=== PATIENT | male | born 1955 | race Caucasian/White ===

== ENCOUNTER 2022-12-14 23:58 | Inpatient (IN) | payer MEDICARE, OTHER ==
[~2022-12-14] VITALS: Ht 170.2 cm; Wt 85.2 kg
[2022-12-15] MEDS ORDERED: HEParin 1000 UNIT/ML (10ML VIAL) FOR BOLUS IV ONE (00:03)
[2022-12-15] MEDS ORDERED: TICAGRELOR 90 MG TABLET (BRILINTA) PO STA (00:03)
[2022-12-15 00:11] LABS: BASOPHILS # (AUTO) 0.1 10^3/uL (0.0-0.1); BASOPHILS % (AUTO) 1 % (0-10); EOSINOPHILS # (AUTO) 0.3 10^3/uL (0.0-0.3); EOSINOPHILS % (AUTO) 3 % (0-10); HEMATOCRIT 45 % (40-54); LYMPHOCYTES # (AUTO) 2.7 10^3/uL (1.0-4.0); LYMPHOCYTES % (AUTO) 27 % (12-44); MEAN CORPUSCULAR HEMOGLOBIN 30 pg (25-34); MEAN CORPUSCULAR HGB CONC 33 g/dL (32-36); MEAN CORPUSCULAR VOLUME 91 fL (80-99); MEAN PLATELET VOLUME 10.7 fL (9.0-12.2); MONOCYTES # (AUTO) 0.9 10^3/uL (0.0-1.0); MONOCYTES % (AUTO) 9 % (0-12); NEUTROPHILS # (AUTO) 6.2 10^3/uL (1.8-7.8); NEUTROPHILS % (AUTO) 61 % (42-75); PLATELET COUNT 252 10^3/uL (130-400); WHITE BLOOD COUNT 10.3 10^3/uL (4.3-11.0)
[2022-12-15] MEDS ORDERED: fentaNYL INJECTION 100 MCG/2 ML VIAL ONE (00:12)
--- NOTE | 2022-12-15 00:12 | ED Chest Pain ---
General Chief Complaint: Chest Pain Stated Complaint: STEMI Source: patient, EMS Exam Limitations: no limitations History of Present Illness Date Seen by Provider: Dec 14, 2022 Time Seen by Provider: 23:56 Initial Comments By EMS with report of shortness of air all day long as [facility] with chest pain that is central without significant radiation and associated with nausea. Ordered to EMS pain 6 out of 10 and also shortness of breath. EMS did give 324 mg of aspirin p.o. and did twelve-lead EKG. Twelve-lead EKG concerning for inferior NC with elevation in leads II, III and aVF and that was transmitted. I did speak with the metal bonding press operator at the scene who described syndrome and we talked about EKG which is concerning for STEMI. STEMI alert activated and patient patient in route via EMS emergent. Patient does have history of hypertension. He chews but does not smoke. Pain persist now. Timing/Duration: 1 hour, constant, getting worse (Shortness of breath getting worse all day) Severity/Quality: moderate, pressure Location: central Radiation: no radiation Prior CP/Workup: no prior chest pain ASA po INSPECTOR CIRCUITRY NEGATIVE: Yes NTG SL INSPECTOR CIRCUITRY NEGATIVE: No Associated Symptoms: No diaphoresis, No fever/chills; nausea/vomiting, shortness of breath; No weakness Allergies and Home Medications Allergies Coded Allergies: Penicillins (Verified Allergy, Unknown, 12/15/22) Patient Home Medication List Home Medication List Reviewed: Yes Review of Systems Review of Systems Constitutional: see HPI; No chills, No fever EENTM: No Symptoms Reported Respiratory: Denies Cough, Denies Shortness of Air Cardiovascular: Chest Pain; Denies Edema Gastrointestinal: Nausea; Denies Vomiting Genitourinary: No Symptoms Reported Musculoskeletal: no symptoms reported Skin: no symptoms reported Psychiatric/Neurological: No Symptoms Reported Past Amsfdwb-Fdchya-Rfygcm Hx Patient Social History Smoking Status: Former Smoker Smokeless Tobacco Frequency: Current Everyday User Past Medical History Surgeries: Yes Abdominal, Testicular Respiratory: No Cardiac: Yes Hypertension Musculoskeletal: No Endocrine: Yes Hypothyroidsim Family Medical History Reviewed Nursing Family Hx No Pertinent Family Hx Physical Exam Vital Signs Capillary Refill : Height, Weight, BMI Height: '" Weight: lbs. oz. kg; BMI Method: General Appearance: No Apparent Distress, Mild Distress HEENT: PERRL/EOMI, Pharynx Normal Neck: Non Tender, Supple Respiratory: Lungs Clear, Normal Breath Sounds Cardiovascular: Regular Rate, Rhythm, No Murmur Gastrointestinal: Non Tender, Soft Extremity: Normal Range of Motion, Non Tender Neurologic/Psychiatric: Alert, Oriented x3 Skin: Normal Color, Warm/Dry Progress/Results/Core Measures Results/Orders Lab Results Laboratory Tests Test 12/15/22 00:04 Range/Units White Blood Count 10.3 4.3-11.0 10^3/uL Red Blood Count 4.95 4.30-5.52 10^6/uL Hemoglobin 15.0 13.3-17.7 g/dL Hematocrit 45 40-54 % Mean Corpuscular Volume 91 80-99 fL Mean Corpuscular Hemoglobin 30 25-34 pg Mean Corpuscular Hemoglobin Concent 33 32-36 g/dL Red Cell Distribution Width 13.7 10.0-14.5 % Platelet Count 252 130-400 10^3/uL Mean Platelet Volume 10.7 9.0-12.2 fL Immature Granulocyte % (Auto) 0 % Neutrophils (%) (Auto) 61 42-75 % Lymphocytes (%) (Auto) 27 12-44 % Monocytes (%) (Auto) 9 0-12 % Eosinophils (%) (Auto) 3 0-10 % Basophils (%) (Auto) 1 0-10 % Neutrophils # (Auto) 6.2 1.8-7.8 10^3/uL Lymphocytes # (Auto) 2.7 1.0-4.0 10^3/uL Monocytes # (Auto) 0.9 0.0-1.0 10^3/uL Eosinophils # (Auto) 0.3 0.0-0.3 10^3/uL Basophils # (Auto) 0.1 0.0-0.1 10^3/uL Immature Granulocyte # (Auto) 0.0 0.0-0.1 10^3/uL Prothrombin Time 12.5 12.2-14.7 SEC INR Comment 0.9 0.8-1.4 Activated Partial Thromboplast Time 34 24-35 SEC Sodium Level 141 135-145 MMOL/L Potassium Level 3.7 3.6-5.0 MMOL/L Chloride Level 103 98-107 MMOL/L Carbon Dioxide Level 22 21-32 MMOL/L Anion Gap 16 H 5-14 MMOL/L Blood Urea Nitrogen 14 7-18 MG/DL Creatinine 1.37 H 0.60-1.30 MG/DL Estimat Glomerular Filtration Rate 57 BUN/Creatinine Ratio 10 Glucose Level 264 H 70-105 MG/DL Calcium Level 9.7 8.5-10.1 MG/DL Corrected Calcium 9.4 8.5-10.1 MG/DL Magnesium Level 2.2 1.6-2.4 MG/DL Total Bilirubin 0.5 0.1-1.0 MG/DL Aspartate Amino Transf (AST/SGOT) 15 5-34 U/L Alanine Aminotransferase (ALT/SGPT) 21 0-55 U/L Alkaline Phosphatase 82 40-136 U/L Myoglobin 24.8 10.0-92.0 NG/ML Troponin I < 0.028 <0.028 NG/ML Total Protein 7.3 6.4-8.2 GM/DL Albumin 4.4 3.2-4.5 GM/DL Lipase 49 8-78 U/L My Orders Orders - GEENA SHERWOOD MD Chest 1 View, Ap/Pa Only (12/15/22 ) Cbc And Automated Diff (12/15/22 00:03) Magnesium (12/15/22 00:03) Ekg Tracing (12/15/22 00:03) Comprehensive Metabolic Panel (12/15/22 00:03) Myoglobin Serum (12/15/22 00:03) Protime With Inr (12/15/22 00:03) Partial Thromboplastin Time (12/15/22 00:03) O2 (12/15/22 00:03) Monitor-Rhythm Ecg Trace Only (12/15/22 00:03) Lipid Panel (12/16/22 06:00) Ed Iv/Invasive Line Start (12/15/22 00:03) Lipase (12/15/22 00:03) Troponin I Refugio (12/15/22 00:03) Ticagrelor Tablet (Brilinta Tablet) (12/15/22 00:03) Heparin (Bolus Per Protocol) (Heparin (B (12/15/22 00:03) Heparin Drip 07476 Unit/500ml (Heparin (12/15/22 00:15) Medications Given in ED Current Medications Medications Dose Ordered Sig/Danyel Route Start Time Stop Time Status Last Admin Dose Admin Heparin Sodium (Porcine) HEPARIN BOLUS ACS PROTOC... 0003 ONCE IV 12/15/22 00:03 12/15/22 00:06 DC 12/15/22 00:17 5,000 UNIT Progress Progress Note : Progress Note STEMI activation from the field. Seen and evaluated on arrival by EMS. I had already talked with Dr Vigil at 2351 and [facility] team activation at that time. Chest pain protocol ordered including EKG, chest x-ray, labs including CBC, CMP, myoglobin, coags, troponin and lipase. Dr Vigil request aspirin 324 mg p.o. if not done by EMS. Also request heparin protocol with bolus and drip. Also initiate Brilinta 180 mg p.o. Monitor patient. Differential diagnosis includes acute myocardial infarction EKG confirms acute NC. Orders as above. [facility] team pending. Patient and family informed. 0015: Chest x-ray reviewed by me and shows no obvious infiltrate on my interpretation. CBC grossly normal with chemistries pending. 0030: Patient has gone to [facility]. Chemistries reviewed and slightly elevated serum creatinine but otherwise grossly normal. Troponin and myoglobin are negative. Coags are normal. Initial ECG Impression Date: Dec 15, 2022 Initial ECG Impression Time: 00:05 Initial ECG Rate: 68 Initial ECG Rhythm: Normal Sinus Initial ECG Impression: Acute NC Comment Sinus rhythm with sinus arrhythmia and ST elevation noted in leads II, III and aVF with reciprocal changes in V1 and V2 indicating inferior NC. Normal axis noted. Interpreted by me and discussed with blanchard grinder operator Diagnostic Imaging Diagonstic Imaging: Xray Plain Films/CT/US/NM/MRI: chest Comments No obvious acute infiltrate on my interpretation Reviewed: Reviewed by Me Departure Communication (Admissions) Time/Spoke to Admitting Phy: 00:05 Impression Primary Impression: Acute ST elevation myocardial infarction (STEMI) of inferior wall Disposition: ADMITTED INPATIENT Condition: Stable Admissions Decision to Admit Reason: Admit from ER (General) Decision to Admit/Date: Dec 15, 2022 Time/Decision to Admit Time: 00:05 GEENA SHERWOOD MD Dec 15, 2022 00:12
[2022-12-15] MEDS ORDERED: MIDAZOLAM INJ 5 MG/5 ML VIAL ONE (00:13)
[2022-12-15] MEDS ORDERED: NITRO DRIP 25000 MCG/D5W 250 ML IV ONE (00:13)
[2022-12-15] MEDS ORDERED: NS IV 1000 ML 1,000 ML ONE (00:13)
[2022-12-15] MEDS ORDERED: HEParin (CATH LAB) 2,000 ML IV ONE (00:13)
[2022-12-15] MEDS ORDERED: HEParin 1000 UNIT/ML (10ML VIAL) FOR BOLUS ONE (00:13)
[2022-12-15] MEDS ORDERED: LIDOCAINE 1% INJ 20 ML VIAL ONE (00:13)
[2022-12-15] MEDS ORDERED: EPTIFIBATIDE BOLUS 20 ML IV ONE (00:14)
[2022-12-15] MEDS ORDERED: HEParin DRIP 25000 UNIT/500ML 500 ML IV ONE (00:15)
[2022-12-15] MEDS ORDERED: morphine INJ 4 MG/ML 1 ML (VIAL/SYRINGE) ONE (00:22)
[2022-12-15 00:33] LABS: ALBUMIN 4.4 GM/DL (3.2-4.5)
[2022-12-15 00:34] LABS: CHLORIDE 103 MMOL/L (98-107); POTASSIUM 3.7 MMOL/L (3.6-5.0); SODIUM 141 MMOL/L (135-145)
[2022-12-15 00:35] LABS: CALCIUM 9.7 MG/DL (8.5-10.1); INR 0.9 (0.8-1.4); PROTHROMBIN TIME PATIENT 12.5 SEC (12.2-14.7)
[2022-12-15 00:36] LABS: GLUCOSE 264 MG/DL (70-105); TOTAL PROTEIN 7.3 GM/DL (6.4-8.2)
[2022-12-15 00:37] LABS: CARBON DIOXIDE 22 MMOL/L (21-32)
[2022-12-15 00:38] LABS: BILIRUBIN,TOTAL 0.5 MG/DL (0.1-1.0)
[2022-12-15 00:39] LABS: ALKALINE PHOSPHATASE 82 U/L (40-136)
[2022-12-15 00:40] LABS: CREATININE SERUM 1.37 MG/DL (0.60-1.30); GFR ESTIMATED 57
[2022-12-15 00:41] LABS: BUN/CREATININE RATIO 10
[2022-12-15 00:42] LABS: ALANINE AMINOTRANSFERASE 21 U/L (0-55); MAGNESIUM 2.2 MG/DL (1.6-2.4)
[2022-12-15 00:43] LABS: LIPASE 49 U/L (8-78)
[2022-12-15] MEDS ORDERED: EPTIFIBATIDE DRIP 100 ML IV ONE (00:47)
[2022-12-15] MEDS ORDERED: niCARdipine IV PYXIS DRIP KIT = 50 MG X 2 VIALS ONE (00:52)
[2022-12-15] MEDS ORDERED: NS (IVPB) 250 ML 250 ML ONE (00:58)
--- NOTE | 2022-12-15 02:01 | Cardiac Cath Report ---
CARDIAC CATHETERIZATION DATE OF PROCEDURE: 12-15-22 INDICATION: Ac Inf Wall STEMI HISTORY: The patient is a 66 year old male with acute inf wall STEMI PROCEDURES PERFORMED: 1. Cor angio; 2. PCI to RCA; 3. LHC and LV angio PROCEDURE DESCRIPTION: After informed consent and in the fasting state, left heart catheterization was performed through the R femoral artery utilizing a 6 [place]ian system by percutaneous approach. JR4 SH guide for R cor angio and intervention, JL4 diagnostic for L cor angio, pigtail for LHC and LV angio. HEMODYNAMICS: LVEDP 8 mmHg (post cor intervention); no significant pressure gradient on pullback across the aortic valve CORONARY ANGIOGRAPHY: Left main coronary artery: Ok Left anterior descending coronary artery: 40% mid vessel with calcification Left circumflex coronary artery: Small, nondominant, w/o significant stenoses Right coronary artery: Dominant, 90% prox and 100 distal (thrombus) LV Angio Done post PCI. REGAN projection only. LVEF 60%. No distinct regional wall motion abnormality PERCUTANEOUS CORONARY INTERVENTION TO RCA Guide: 6F JR4 SH Wire: Choice floppy (tip in the PDA) and Choice PT Graphix (tip in the distal posterolateral) Balloon: 2.5 x 20 Aspiration catheter for aspiration thrombectomy of distal RCA Stents: Skypoint 3.5 x 15 for prox RCA; Riaz point 2.5 x 23 for distal RCA Pre-PCI 1. 90% prox RCA with TONY 2 antegrade flow 2. 100% distal RCA (due to distal thrombus) with TONY 0 antegrade flow Post-PCI 1. 0% prox RCA with TONY 3 antegrade flow following deployment of Skypoint 3.5 x 15 mm stent 2. 0% distal RCA with TONY 3 antegrade flow following aspiration thrombectomy and deployment of Skypoint 2.5 x 23 mm stent [id number] Time: 45 minutes IMPRESSION: 1. Dominant RCA with 90% prox stenosis reduced to 0% residual following Skypoint 3.5 x 15 stent and 100% distal RCA (due to thrombus) reduced to 0% following aspiration thrombectomy and Skypoint 2.5 x 23 stent. LAD has 40% mid- vessel stenosis. LCx is nondominant and without significant disease 2. LVEDP 8 mmHg 3. LVEF 60% KELL BROWN MD FACP FAC CCDS Dec 15, 2022 02:01
--- NOTE | 2022-12-15 02:02 | Cardiac Procedure Note-CS/ASA ---
Pre-Procedure Note Pre-Op Procedure Note Date of Available H&P: Dec 15, 2022 Date H&P Reviewed: Dec 15, 2022 Time H&P Reviewed: 00:30 History & Physical: H&P Reviewed Moderate Sedation PreProcedure ASA Score 4 Airway Lungs Heart ASA score ASA 1: a normal healthy patient ASA 2: a patient with a mild systemic disease (mid diabetes, controlled hypertension, obesity ASA 3: a patient with a severe systemic disease that limits activity (angina, COPD, prior Myocardial infarction) ASA 4: a patient with an incapacitating disease that is a constant threat to life (CHF, renal failure) ASA 5: a moribund patient not expected to survive 24 hrs. (ruptured aneurysm) ASA 6: a declared brain- patient whose organs are being harvested. For emergent operations, add the letter E after the classification Mallampati Classification Grade 2 Sedation Plan Analgesia, Amnesia, Plan communicated to team members The patient is an appropriate candidate to undergo the planned procedure, sedation, and anesthesia. The patient immediately re-assessed prior to indication. KELL BROWN MD FACP FAC CCDS Dec 15, 2022 02:02
[2022-12-15] MEDS ORDERED: ACETAMINOPHEN 325 MG TABLET PO PRN (02:15)
[2022-12-15] MEDS ORDERED: TEMAZEPAM 7.5 MG CAP (RESTORIL) PO PRN (02:15)
[2022-12-15] MEDS ORDERED: PATIENT MAY USE OWN MEDS, ALL PO SCH (02:15)
--- NOTE | 2022-12-15 02:20 | Consultation-Cardiology ---
HPI-Cardiology Cardiology Consultation: Date of Consultation 12/15/22 Time Seen by a Provider: 00:30 Date of Admission Attending Physician No,Local Physician Admitting Physician Admitting Physician: Attending Physician: René Vigil MD [facility] Consulting Physician RENÉ VIGIL MD, FACP, FAC, [facility], CCDS HPI: Chief Complaint: Chest discomfort 66 yo man traveling from [place] who developed sudden chest discomfort in the midsternal area, mod to severe, associated with nausea, w/o radiation, never experienced before. No shortness of breath. No palp or syncope. No vomiting or diarrhea. ECG by EMT showed inf ST elevation. Brought to the label cutter upon arrival to the ER. Informed consent obtained for card cath and ad hoc PCI. RCA intervened on. Review of Systems-Cardiology Review of Systems Constitutional: No lightheadedness, No malaise, No weight loss, No weight gain Eyes: No vision change Ears/Nose/Throat: No ear discharge, No nasal drainage, No recent hearing loss Respiratory: As described under HPI Cardiovascular: As described under HPI Gastrointestinal: As described under HPI Genitourinary: No dysuria, No hematuria Musculoskeletal: No back pain, No joint pain Skin: No rash, No ulcerations Psychiatric/Neurological: No seizure, No focal weakness, No syncope Hematologic: No bleeding abnormalities LVT-Tovvuu-Ieedkc Hx Patient Social History Smoking Status: Former Smoker Past Medical History PMH As described under Assessment. Family Medical History Family Medical History: Mother and brother have a h/o [place] Allergies and Home Medications Allergies Coded Allergies: Penicillins (Verified Allergy, Unknown, 12/15/22) Patient Home Medication List Home Medication List Reviewed: Yes Physical Exam-Cardiology Physical Exam Vital Signs/I&O Capillary Refill : Constitutional: AAO x 3, well-developed, well-nourished HEENT: EOMI, hearing is well preserved; No xanthelasmas are seen Neck: carotid pulses are 2 + bilaterally, with good upstrokes Respiratory: No accessory muscle use; chest expansion is symmetric, chest is bilaterally symmetric, other (good, bilat air entry) Cardiovascular: regular rate-rhythm, S1 and S2, systolic murmur (soft LEONARDO at card base) Gastrointestinal: No tender; soft; No guarding, No rebound; audible bowel sounds Extremities: No clubbing, No cyanosis, No significant edema Neurologic/Psychiatric: oriented x 3, other (moves all limbs equally) Skin: normal color, warm/dry; No cyanosis, No cool, No diaphoresis, No rash, No ulcerations Data Review Labs Laboratory Tests 12/15/22 00:04: White Blood Count 10.3, Red Blood Count 4.95, Hemoglobin 15.0, Hematocrit 45, Mean Corpuscular Volume 91, Mean Corpuscular Hemoglobin 30, Mean Corpuscular Hemoglobin Concent 33, Red Cell Distribution Width 13.7, Platelet Count 252, Mean Platelet Volume 10.7, Immature Granulocyte % (Auto) 0, Neutrophils (%) (Auto) 61, Lymphocytes (%) (Auto) 27, Monocytes (%) (Auto) 9, Eosinophils (%) (Auto) 3, Basophils (%) (Auto) 1, Neutrophils # (Auto) 6.2, Lymphocytes # (Auto) 2.7, Monocytes # (Auto) 0.9, Eosinophils # (Auto) 0.3, Basophils # (Auto) 0.1, Immature Granulocyte # (Auto) 0.0, Prothrombin Time 12.5, INR Comment 0.9, Activ ated Partial Thromboplast Time 34, Sodium Level 141, Potassium Level 3.7, Chloride Level 103, Carbon Dioxide Level 22, Anion Gap 16H, Blood Urea Nitrogen 14, Creatinine 1.37H, Estimat Glomerular Filtration Rate 57, BUN/Creatinine Ratio 10, Glucose Level 264H, Calcium Level 9.7, Corrected Calcium 9.4, Magnesium Level 2.2, Total Bilirubin 0.5, Aspartate Amino Transf (AST/SGOT) 15, Alanine Aminotransferase (ALT/SGPT) 21, Alkaline Phosphatase 82, Myoglobin 24.8, Troponin I < 0.028, Total Protein 7.3, Albumin 4.4, Lipase 49 Laboratory Tests 12/15/22 00:04 A/P-Cardiology Assessment/Admission Diagnosis Ac inf wall STEMI - card cath on 12-15-22: 1. Dominant RCA with 90% prox stenosis reduced to 0% residual following Skypoint 3.5 x 15 stent and 100% distal RCA (due to thrombus) reduced to 0% following aspiration thrombectomy and Skypoint 2.5 x 23 stent. LAD has 40% mid-vessel stenosis. LCx is nondominant and without significant disease. 2. LVEDP 8 mmHg. 3. LVEF 60% H/o hyperlipidemia Elevated blood sugar suggestive of DM II Mild renal insufficiency of unknown chronicity Quit smoking in or around 2013 Discussion and Recomendations * DAPT * BB * Statin * Echo * Advised to continue to refrain from smoking * iv fluids * Monitor labs * Hospitalist consult to manage hyperglycemia and renal insuff * I discussed his CV issues and interventions undertaken in detail with the patient and his family (that he allowed to be present) Clinical Quality Measures AMI/AHF: ASA po Prior to arrival: Yes RENÉ VIGIL MD FACP FAC CCDS Dec 15, 2022 02:20
[2022-12-15] MEDS: NS IV 1000 ML 1,000 ML IV SCH ×3 (03:53→20:36)
[2022-12-15] MEDS ORDERED: ONDANSETRON INJECTION 4 MG/2 ML (SDV) ONE (04:58)
[2022-12-15] MEDS ORDERED: morphine INJ 4 MG/ML 1 ML (VIAL/SYRINGE) IVP PRN (05:00)
[2022-12-15] MEDS ORDERED: ONDANSETRON INJECTION 4 MG/2 ML (SDV) IVP PRN (05:00)
[2022-12-15] MEDS ORDERED: inSUlin ASPART 1 UNIT/0.01 ML (PER UNIT) SC SCH (07:00)
--- NOTE | 2022-12-15 07:49 | Diagnostic Imaging Report ---
EXAMINATION: Chest 1 view HISTORY: STEMI COMPARISON: None available. FINDINGS: Heart size and pulmonary vasculature are normal. The lungs are clear without consolidation, pleural effusion, or pneumothorax. Degenerative changes of the thoracic spine. Osseous structures are otherwise intact. IMPRESSION: 1. No acute radiographic abnormality in the chest. Dictated by: Dictated on workstation # [id number]
[2022-12-15] MEDS: ASPIRIN 81 MG CHEWABLE TABLET PO SCH (09:31)
[2022-12-15] MEDS: TICAGRELOR 90 MG TABLET (BRILINTA) PO SCH ×2 (09:32→20:35)
[2022-12-15] MEDS: inSUlin ASPART 1 UNIT/0.01 ML (PER UNIT) SC SCH ×3 (10:59→20:34)
--- NOTE | 2022-12-15 10:59 | Consultation - Hospitalist ---
JAMIE HICKEY MD, RESIDENT 12/15/22 1059: HPI History of Present Illness: HPI/Chief Complaint Hospitalist service was consulted for management of patient's hyperglycemia and renal insufficiency. He is status post cardiac cath secondary to STEMI. Of note, patient had stent placed due to 90% proximal RCA stenosis and had thrombectomy and stent placement of thrombus leading to 100% distal RCA stenosis. Patient is doing well today. He is continuing to note some sided chest pain but states this is slowly improving compared to prior. He was noted to have hyperglycemia but states that he has always been in the prediabetic range and has never been on any medications for diabetes. Patient does note that he had a chest cold prior to presenting to the ED with cough productive of greenish sputum. He states this is also improving. Date Seen 12/15/22 Attending Physician Declo/[facility] PCP Admitting Physician: René Vigil MD [facility] Ccds Attending Physician: René Vigil MD [facility] Ccds Referring Physician Dr. Vigil Date of Admission Dec 15, 2022 at 02:03 Home Medications & Allergies Home Medications Reviewed patient Home Medication Reconciliation performed by pharmacy medication reconciliations lawn care technician and/or nursing. Patients Allergies have been reviewed. Allergies Allergies Coded Allergies Penicillins (Verified Allergy, Unknown, 12/15/22) Past Llcfnlx-Batmlz-Ogxfeu Hx Patient Social History Tobacco Use?: No Smoking Status: Former Smoker Smokeless type used: Chew Smokeless Tobacco Frequency: Current Everyday User Use of E-Cig and/or Vaping dev: No Substance use?: No Alcohol Use?: No Pt feels they are or have been: No Current Status Advance Directives: Unable to obtain Advance Directive Location: Unable to obtain copy Communicates: Verbally Primary Language: Comoran Preferred Spoken Language: Comoran Is interpretation needed?: No Sensory deficits: Vision impairment Additional sensory deficits: glassess at bedside Implanted or Applied Medical D: None Past Medical History Surgeries: Abdominal, Testicular Hypertension Hypothyroidsim Family Medical History Reviewed Nursing Family Hx No Pertinent Family Hx Review of Systems Constitutional: No chills, No fever EENTM: No blurred vision Respiratory: cough; No phlegm, No short of breath Cardiovascular: chest pain; No edema Gastrointestinal: No abdominal pain, No constipation, No diarrhea, No nausea, No vomiting Genitourinary: No dysuria Musculoskeletal: No back pain Skin: No dryness Physical Exam Physical Exam Vital Signs Vital Signs - First Documented 12/14/22 12/15/22 23:58 00:04 Temp 36.4 Pulse 82 Resp 16 B/P (MAP) 165/92 (116) Pulse Ox 98 O2 Delivery Room Air O2 Flow Rate 2.00 Capillary Refill : Less Than 3 Seconds Height, Weight, BMI Height: '" Weight: lbs. oz. kg; 29.34 BMI Method: General Appearance: No Apparent Distress, Mild Distress HEENT: PERRL/EOMI, Pharynx Normal Neck: Non Tender, Supple Respiratory: Normal Breath Sounds, Crackles (Rectal was noted in the left lower lobe.) Cardiovascular: Regular Rate, Rhythm, No Murmur Gastrointestinal: Non Tender, Soft Extremity: Normal Range of Motion, Non Tender Neurologic/Psychiatric: Alert, Oriented x3 Skin: Normal Color, Warm/Dry Results Results/Procedures Labs Laboratory Tests 12/15/22 00:04 Patient resulted labs reviewed. Diagnosis/Problems Diagnosis/Problems (1) Acute ST elevation myocardial infarction (STEMI) of inferior wall Status: Acute Assessment & Plan: Managed per cardiology. Agree with DAPT, beta-doc, statin at this time. Agree with echocardiogram to further evaluate heart function. (2) Renal insufficiency Status: Acute Assessment & Plan: Not concerning at this time. Continue monitoring with daily CMP. Continue maintenance fluids. (3) Hypothyroidism Status: Chronic Assessment & Plan: Patient has a history of hypothyroidism is on levothyroxine. Consider restarting patient's levothyroxine if appropriate in the setting of recent STEMI (4) Hyperglycemia Status: Acute Assessment & Plan: Patient noted to have glucose of 264 with CMP. Ordered A1c to further evaluate Continue sliding scale insulin for further management at this time. We will continue to monitor glucose checks. (5) Lung crackles Status: Acute Assessment & Plan: Left lower lobe crackles on lung exam today. Chest x-ray obtained on admission is clear. Ordered incentive spirometry. Clinical Quality Measures AMI/AHF: ASA po Prior to arrival: Yes SAADIA ALONSO DO 12/15/22 1448: HPI History of Present Illness: HPI/Chief Complaint CC: Hyperglycemia HPI: This is a 66yoWM who s/p STEMI with intervention. He has been borderline DM for "years" Source: patient Exam Limitations: no limitations Past Ukjazpv-Ryuyww-Rqthbi Hx Patient Social History Marrital Status: single Employed/Student: retired Smoking Status: Current Everyday Smoker Past Medical History Diabetes, Non-Insulin dep Review of Systems Constitutional: see HPI Physical Exam Physical Exam General Appearance: No Apparent Distress, WD/WN, Chronically ill Respiratory: Lungs Clear, Normal Breath Sounds Assessment/Plan Assessment and Plan Assess & Plan/Chief Complaint NSTEMI DM HTN HLP Plan: SSI Monitor closely JAMIE HICKEY MD, RESIDENT Dec 15, 2022 10:59 SAADIA ALONSO DO Dec 15, 2022 14:48
[2022-12-15] MEDS ORDERED: LEVO137C4 PO (11:08)
[2022-12-15] MEDS ORDERED: AMLO-250 PO (11:08)
[2022-12-15] MEDS ORDERED: MULT-436 PO (11:08)
[2022-12-15] MEDS ORDERED: OMEG10005 PO (11:08)
[2022-12-15] MEDS ORDERED: CALC600T91 PO (11:08)
[2022-12-15] MEDS ORDERED: ASPI-999 PO (11:08)
[2022-12-15] MEDS ORDERED: LYSI500T37 PO (11:08)
[2022-12-15] MEDS ORDERED: VITA100T6 PO (11:08)
[2022-12-15] MEDS ORDERED: ATEN50TA PO (11:08)
[2022-12-16 05:45] LABS: BASOPHILS # (AUTO) 0.1 10^3/uL (0.0-0.1); BASOPHILS % (AUTO) 1 % (0-10); EOSINOPHILS # (AUTO) 0.2 10^3/uL (0.0-0.3); EOSINOPHILS % (AUTO) 2 % (0-10); HEMATOCRIT 41 % (40-54); HEMOGLOBIN 13.8 g/dL (13.3-17.7); LYMPHOCYTES # (AUTO) 1.5 10^3/uL (1.0-4.0); LYMPHOCYTES % (AUTO) 16 % (12-44); MEAN CORPUSCULAR HEMOGLOBIN 30 pg (25-34); MEAN CORPUSCULAR HGB CONC 34 g/dL (32-36); MEAN CORPUSCULAR VOLUME 89 fL (80-99); MEAN PLATELET VOLUME 10.6 fL (9.0-12.2); MONOCYTES # (AUTO) 1.2 10^3/uL (0.0-1.0); MONOCYTES % (AUTO) 13 % (0-12); NEUTROPHILS # (AUTO) 6.5 10^3/uL (1.8-7.8); NEUTROPHILS % (AUTO) 68 % (42-75); PLATELET COUNT 231 10^3/uL (130-400); WHITE BLOOD COUNT 9.6 10^3/uL (4.3-11.0)
[2022-12-16 05:59] LABS: ALBUMIN 3.6 GM/DL (3.2-4.5)
[2022-12-16 06:00] LABS: CALCIUM 8.7 MG/DL (8.5-10.1)
[2022-12-16 06:05] LABS: CREATININE SERUM 1.05 MG/DL (0.60-1.30)
[2022-12-16] MEDS: inSUlin ASPART 1 UNIT/0.01 ML (PER UNIT) SC SCH ×4 (06:05→21:52)
[2022-12-16 06:09] LABS: MAGNESIUM 1.8 MG/DL (1.6-2.4)
[2022-12-16] MEDS: TICAGRELOR 90 MG TABLET (BRILINTA) PO SCH ×2 (10:08→21:51)
[2022-12-16] MEDS: ASPIRIN 81 MG CHEWABLE TABLET PO SCH (10:08)
--- NOTE | 2022-12-16 11:23 | Progress Note - Cardiology ---
Cardiology SOAP Progress Note Subjective: Sitting up in bed States he feels well He has been up in the room No c/o CP, palpitations, SOB Objective: I&O/Vital Signs 12/16/22 12/16/22 12/16/22 12/16/22 19:52 20:00 21:50 23:40 Temp 37.1 Pulse 100 106 82 Resp 22 35 25 B/P (MAP) 93/51 (65) 111/77 (83) 107/66 (74) Pulse Ox 96 97 O2 Delivery Room Air Room Air Room Air Room Air 12/17/22 12/17/22 12/17/22 12/17/22 00:03 01:00 03:23 03:46 Temp 36.3 Pulse 92 94 Resp 19 B/P (MAP) 101/68 (79) Pulse Ox 93 O2 Delivery Room Air Room Air Room Air 12/17/22 07:44 Temp 36.0 Pulse 97 Resp 20 B/P (MAP) 98/65 (76) Pulse Ox 97 O2 Delivery Room Air 12/16/22 23:59 Intake Total 2500 ml Output Total 2250 ml Balance 250 ml Side: right Groin site without hematoma: Yes Condition: DP/PT pulses palpable Bruising: moderated bruising Constitutional: AAO x 3, well-developed, well-nourished Respiratory: No accessory muscle use; chest expansion is symmetric, chest is bilaterally symmetric, other (good, bilat air entry) Cardiovascular: regular rate-rhythm, S1 and S2, systolic murmur (soft LEONARDO at card base) Gastrointestional: No tender; soft; No guarding, No rebound; audible bowel sounds Extremities: No clubbing, No cyanosis, No significant edema Neurologic/Psychiatric: oriented x 3, other (moves all limbs equally) Skin: normal color, warm/dry; No cyanosis, No cool, No diaphoresis, No rash, No ulcerations Results/Procedures: Labs Laboratory Tests 12/16/22 10:42: Glucometer 143H 12/16/22 15:48: Glucometer 146H 12/16/22 20:51: Glucometer 185H 12/17/22 04:57: Sodium Level 138, Potassium Level 4.0, Chloride Level 108H, Carbon Dioxide Level 20L, Anion Gap 10, Blood Urea Nitrogen 14, Creatinine 1.09, Estimat Glomerular Filtration Rate 74, BUN/Creatinine Ratio 13, Glucose Level 112H, Calcium Level 8.7, Corrected Calcium 8.9, Total Bilirubin 1.0, Aspartate Amino Transf (AST/SGOT) 53H, Alanine Aminotransferase (ALT/SGPT) 29, Alkaline Phosphatase 55, Total Protein 6.2L, Albumin 3.7 A/P: Assessment: Ac inf wall STEMI - card cath on 12-15-22: 1. Dominant RCA with 90% prox stenosis reduced to 0% residual following Skypoint 3.5 x 15 stent and 100% distal RCA (due to thrombus) reduced to 0% following aspiration thrombectomy and Skypoint 2.5 x 23 stent. LAD has 40% mid-vessel stenosis. LCx is nondominant and without significant disease. 2. LVEDP 8 mmHg. 3. LVEF 60% H/o hyperlipidemia Elevated blood sugar suggestive of DM II Mild renal insufficiency of unknown chronicity Quit smoking in or around 2013 Plan: * DAPT * BB * Statin * Echo * Advised to continue to refrain from smoking * D/C IVF * Monitor labs * Hospitalist consult to manage hyperglycemia and renal insuff * Discharge planning Clinical Quality Measures AMI/AHF: ASA po Prior to arrival: Yes EUGENIA ALCANTAR Dec 16, 2022 11:23
[2022-12-16] MEDS ORDERED: ATOR80TA76 PO (11:37)
[2022-12-16] MEDS ORDERED: MTP25TSR PO (11:37)
[2022-12-16] MEDS ORDERED: ASPI81TA64 PO (11:37)
[2022-12-16] MEDS ORDERED: TICA90TA PO (11:37)
--- NOTE | 2022-12-16 11:48 | Progress Note ---
Subjective Subjective/Events-last exam Pt came to hospital due to shortness of breath and concern for heart attack. He was found to have ST elevation OR and he had cath and RCA stenting and is feeling well now. Objective Exam Last Set of Vital Signs Vital Signs Date Time Temp Pulse Resp B/P (MAP) Pulse Ox O2 Delivery O2 Flow Rate FiO2 12/16/22 09:39 36.5 82 18 125/65 (85) 97 Room Air 2.00 2.00 Capillary Refill : Less Than 3 Seconds I&O Intake and Output 12/16/22 00:00 Intake Total 1120 ml Output Total 3550 ml Balance -2430 ml Intake Oral 1120 ml Output Urine Total 3550 ml Daily Weight Change No General: Alert, No Acute Distress Heart: Regular Rate, No Murmurs Abdomen: Normal Bowel Sounds, Soft, No Tenderness Neuro: Normal Speech Psych/Mental Status: Mood NL Results/Procedures Lab Laboratory Tests 12/15/22 17:49: Glucometer 96 12/15/22 20:34: Glucometer 152H 12/16/22 05:32: White Blood Count 9.6, Red Blood Count 4.56, Hemoglobin 13.8, Hematocrit 41, Mean Corpuscular Volume 89, Mean Corpuscular Hemoglobin 30, Mean Corpuscular Hemoglobin Concent 34, Red Cell Distribution Width 13.7, Platelet Count 231, Mean Platelet Volume 10.6, Immature Granulocyte % (Auto) 0, Neutrophils (%) ( Auto) 68, Lymphocytes (%) (Auto) 16, Monocytes (%) (Auto) 13H, Eosinophils (%) (Auto) 2, Basophils (%) (Auto) 1, Neutrophils # (Auto) 6.5, Lymphocytes # (Auto) 1.5, Monocytes # (Auto) 1.2H, Eosinophils # (Auto) 0.2, Basophils # (Auto) 0.1, Immature Granulocyte # (Auto) 0.0, Sodium Level 138, Potassium Level 4.0, Chloride Level 106, Carbon Dioxide Level 22, Anion Gap 10, Blood Urea Nitrogen 11, Creatinine 1.05, Estimat Glomerular Filtration Rate 78, BUN/Creatinine Ratio 10, Glucose Level 130H, Calcium Level 8.7, Corrected Calcium 9.0, Magnesium Level 1.8, Total Bilirubin 1.0, Aspartate Amino Transf (AST/SGOT) 105H, Alanine Aminotransferase (ALT/SGPT) 33, Alkaline Phosphatase 56, Total Protein 6.0L, Albumin 3.6, Triglycerides Level 161H, Cholesterol Level 187, LDL Cholesterol Direct 144H, VLDL Cholesterol 32, HDL Cholesterol 40, Thyroid Stimulating Hormone (TSH) 0.53 12/16/22 10:42: Glucometer 143H Assessment/Plan Assessment/Plan (1) Hyperglycemia Status: Acute Assessment & Plan: A1c pending, sliding scale insulin as needed. Blood sugar 96-161, has not qualified for insulin. (2) Renal insufficiency Status: Acute Assessment & Plan: Creatinine down to 1.05 today. Continue to monitor. (3) Acute ST elevation myocardial infarction (STEMI) of inferior wall Status: Acute Assessment & Plan: s/p RCA stenting and thombectomy. Appreciate Cardiology recommendations. On metoprolol, ticagrelor and asprin and atorvastatin. Clinical Quality Measures AMI/AHF: ASA po Prior to arrival: Yes PREMA VEGA MD Dec 16, 2022 11:48
--- NOTE | 2022-12-16 13:21 | Progress Note - Cardiology ---
Cardiology SOAP Progress Note Subjective: No cp or palp or syncope or shortness of breath or groin or leg discomfort No n/v/d No focal weakness Has been ambulating well and w/o difficulty Objective: I&O/Vital Signs 12/16/22 12/16/22 12/16/22 12/16/22 04:37 04:39 06:02 07:17 Temp 36.5 Pulse 98 82 Resp 18 B/P (MAP) 125/65 (85) Pulse Ox 97 O2 Delivery Room Air Nasal Cannula O2 Flow Rate 2.00 12/16/22 12/16/22 12/16/22 12/16/22 08:18 09:39 12:25 12:26 Temp 36.5 36.4 Pulse 82 90 87 Resp 18 16 B/P (MAP) 125/65 (85) 98/65 (76) Pulse Ox 97 97 O2 Delivery Room Air Room Air Room Air O2 Flow Rate 2.00 2.00 12/16/22 00:00 Intake Total 750 ml Output Total 1950 ml Balance -1200 ml Side: right Groin site without hematoma: Yes Condition: DP/PT pulses palpable Bruising: moderated bruising Constitutional: AAO x 3, well-developed, well-nourished Respiratory: No accessory muscle use; chest expansion is symmetric, chest is bilaterally symmetric, other (good, bilat air entry) Cardiovascular: regular rate-rhythm, S1 and S2, systolic murmur (soft LEONARDO at card base) Gastrointestional: No tender; soft; No guarding, No rebound; audible bowel sounds Extremities: No clubbing, No cyanosis, No significant edema Neurologic/Psychiatric: oriented x 3, other (moves all limbs equally) Skin: normal color, warm/dry; No cyanosis, No cool, No diaphoresis, No rash, No ulcerations Results/Procedures: Labs Laboratory Tests 12/15/22 17:49: Glucometer 96 12/15/22 20:34: Glucometer 152H 12/16/22 05:32: White Blood Count 9.6, Red Blood Count 4.56, Hemoglobin 13.8, Hematocrit 41, Mean Corpuscular Volume 89, Mean Corpuscular Hemoglobin 30, Mean Corpuscular Hemoglobin Concent 34, Red Cell Distribution Width 13.7, Platelet Count 231, Mean Platelet Volume 10.6, Immature Granulocyte % (Auto) 0, Neutrophils (%) (Auto) 68, Lymphocytes (%) (Auto) 16, Monocytes (%) (Auto) 13H, Eosinophils (%) (Auto) 2, Basophils (%) (Auto) 1, Neutrophils # (Auto) 6.5, Lymphocytes # (Auto) 1.5, Monocytes # (Auto) 1.2H, Eosinophils # (Auto) 0.2, Basophils # (Auto) 0.1, Immature Granulocyte # (Auto) 0.0, Sodium Level 138, Potassium Level 4.0, Chloride Level 106, Carbon Dioxide Level 22, Anion Gap 10, Blood Urea Nitrogen 11, Creatinine 1.05, Estimat Glomerular Filtration Rate 78, BUN/Creatinine Ratio 10, Glucose Level 130H, Calcium Level 8.7, Corrected Calcium 9.0, Magnesium Level 1.8, Total Bilirubin 1.0, Aspartate Amino Transf (AST/SGOT) 105H, Alanine Aminotransferase (ALT/SGPT) 33, Alkaline Phosphatase 56, Total Protein 6.0L, Albumin 3.6, Triglycerides Level 161H, Cholesterol Level 187, LDL Cholesterol Direct 144H, VLDL Cholesterol 32, HDL Cholesterol 40, Thyroid Stimulating Hormone (TSH) 0.53 12/16/22 10:42: Glucometer 143H Laboratory Tests 12/15/22 00:04 12/16/22 05:32 A/P: Assessment: [facility] STEMI - card cath on 12-15-22: 1. Dominant RCA with 90% prox stenosis reduced to 0% residual following Skypoint 3.5 x 15 stent and 100% distal RCA (due to thrombus) reduced to 0% following aspiration thrombectomy and Skypoint 2.5 x 23 stent. LAD has 40% mid-vessel stenosis. LCx is nondominant and without significant disease. 2. LVEDP 8 mmHg. 3. LVEF 60% H/o hyperlipidemia Elevated blood sugar suggestive of DM II Mild renal insufficiency of unknown chronicity Quit smoking in or around 2013 Plan: * DAPT * BB * Statin * Echo * Advised to continue to refrain from smoking * D/C IVF * Monitor labs * Hospitalist consult to manage hyperglycemia and renal insuff * Discharge planning Clinical Quality Measures AMI/AHF: ASA po Prior to arrival: Yes KELL BROWN MD FACP FAC CCDS Dec 16, 2022 13:21
[2022-12-16] MEDS ORDERED: LEVO137T2 PO (15:28)
[2022-12-16] MEDS: NS IV 1000 ML 1,000 ML IV SCH (19:21)
[2022-12-17] MEDS: NS IV 1000 ML 1,000 ML IV SCH (04:15)
[2022-12-17 05:21] LABS: ALBUMIN 3.7 GM/DL (3.2-4.5)
[2022-12-17 05:23] LABS: CALCIUM 8.7 MG/DL (8.5-10.1)
[2022-12-17 05:24] LABS: TOTAL PROTEIN 6.2 GM/DL (6.4-8.2)
[2022-12-17 05:27] LABS: CREATININE SERUM 1.09 MG/DL (0.60-1.30)
[2022-12-17] MEDS: inSUlin ASPART 1 UNIT/0.01 ML (PER UNIT) SC SCH ×2 (06:25→11:31)
[2022-12-17] MEDS: TICAGRELOR 90 MG TABLET (BRILINTA) PO SCH (09:02)
[2022-12-17] MEDS: ASPIRIN 81 MG CHEWABLE TABLET PO SCH (09:03)
[2022-12-17] MEDS ORDERED: LEVO137T2 PO (11:04)
[2022-12-17] MEDS ORDERED: DOXY100T2 PO (11:08)
[2022-12-17 12:08] VITALS: BP 108/82
--- NOTE | 2022-12-17 14:46 | Progress Note - Cardiology ---
Cardiology SOAP Progress Note Subjective: No cp or palp or syncope No n/v/d Has had some productive cough (for several days prior to this admission) that has continued through this hosp No focal weakness No shortness of breath No groin or leg discomfort Feels well and wishes to go home Objective: I&O/Vital Signs 12/17/22 12/17/22 12/17/22 12/17/22 03:23 03:46 07:09 07:44 Temp 36.3 36.0 Pulse 94 90 97 Resp 19 20 B/P (MAP) 101/68 (79) 98/65 (76) Pulse Ox 93 97 O2 Delivery Room Air Room Air Room Air 12/17/22 12/17/22 12/17/22 08:00 11:09 12:08 Temp 36.0 Pulse 83 83 Resp 16 16 B/P (MAP) 108/82 (91) 108/82 Pulse Ox 99 99 O2 Delivery Room Air Room Air Room Air O2 Flow Rate 0.00 12/17/22 00:00 Intake Total 2500 ml Output Total 2250 ml Balance 250 ml Side: right Groin site without hematoma: Yes Condition: DP/PT pulses palpable Bruising: moderated bruising Constitutional: AAO x 3, well-developed, well-nourished Respiratory: No accessory muscle use; chest expansion is symmetric, chest is bilaterally symmetric, other (good, bilat air entry) Cardiovascular: regular rate-rhythm, S1 and S2, systolic murmur (soft LEONARDO at card base) Gastrointestional: No tender; soft; No guarding, No rebound; audible bowel sounds Extremities: No clubbing, No cyanosis, No significant edema Neurologic/Psychiatric: oriented x 3, other (moves all limbs equally) Skin: normal color, warm/dry; No cyanosis, No cool, No diaphoresis, No rash, No ulcerations Results/Procedures: Labs Laboratory Tests 12/16/22 15:48: Glucometer 146H 12/16/22 20:51: Glucometer 185H 12/17/22 04:57: Sodium Level 138, Potassium Level 4.0, Chloride Level 108H, Carbon Dioxide Level 20L, Anion Gap 10, Blood Urea Nitrogen 14, Creatinine 1.09, Estimat Glomerular Filtration Rate 74, BUN/Creatinine Ratio 13, Glucose Level 112H, Calcium Level 8.7, Corrected Calcium 8.9, Total Bilirubin 1.0, Aspartate Amino Transf (AST/SGOT) 53H, Alanine Aminotransferase (ALT/SGPT) 29, Alkaline Phosphatase 55, Total Protein 6.2L, Albumin 3.7 12/17/22 11:12: Glucometer 125H Microbiology 12/16/22 MRSA Screen - Final, Complete A/P: Assessment: Ac inf wall STEMI - card cath on 12-15-22: 1. Dominant RCA with 90% prox stenosis reduced to 0% residual following Skypoint 3.5 x 15 stent and 100% distal RCA (due to thrombus) reduced to 0% following aspiration thrombectomy and Skypoint 2.5 x 23 stent. LAD has 40% mid-vessel stenosis. LCx is nondominant and without significant disease. 2. LVEDP 8 mmHg. 3. LVEF 60% H/o hyperlipidemia Elevated blood sugar suggestive of DM II Mild renal insufficiency of unknown chronicity Quit smoking in or around 2013 H/o hypothyroidism chronically treated with thyroid replacement therapy that is followed by his pcp Plan: * DAPT * BB * Statin * Advised to continue to refrain from smoking * I discussed his case with Dr Earl, patient's hospitalist, who advises dietary therapy for borderline DM II and her service will f/u as outpatient on patient's medical issues including hyperglycemia, recent productive cough, and hypothyroidism * Outpt cardiac f/u advised Clinical Quality Measures AMI/AHF: ASA po Prior to arrival: Yes KELL BROWN MD FACP [facility] CCDS Dec 17, 2022 14:46
--- NOTE | 2022-12-17 14:47 | Cardiology Discharge Summary ---
Diagnosis/Chief Complaint Date of Admission Dec 15, 2022 at 02:03 Date of Discharge Dec 17, 2022 at 12:13 Final/Discharge Diagnosis Ac inf wall STEMI - card cath on 12-15-22: 1. Dominant RCA with 90% prox stenosis reduced to 0% residual following Skypoint 3.5 x 15 stent and 100% distal RCA (due to thrombus) reduced to 0% following aspiration thrombectomy and Skypoint 2.5 x 23 stent. LAD has 40% mid-vessel stenosis. LCx is nondominant and without significant disease. 2. LVEDP 8 mmHg. 3. LVEF 60% H/o hyperlipidemia Elevated blood sugar suggestive of DM II Mild renal insufficiency of unknown chronicity Quit smoking in or around 2013 H/o hypothyroidism chronically treated with thyroid replacement therapy that is followed by his pcp Chief Complaint/HPI Chief Complaint/HPI 66 yo man traveling from [place] who developed sudden chest discomfort in the midsternal area, mod to severe, associated with nausea, w/o radiation, never experienced before. No shortness of breath. No palp or syncope. No vomiting or diarrhea. ECG by EMT showed inf ST elevation. Brought to the cathode ray tube salvage processor upon arrival to the ER. Informed consent obtained for card cath and ad hoc PCI. RCA intervened on. Please refer to our progess note of today's date (12-17-22) for hosp course and condition at discharge. Discharge Summary Hospital Course Pending Labs Laboratory Tests 12/17/22 11:12: Glucometer 125 Discussion & Recommendations Home Medications Reviewed patient Home Medication Reconciliation performed by pharmacy medication reconciliations gyroscopic engineering technician and/or nursing. Patients Allergies have been reviewed. Discharge Home Medications: Reviewed and agree with Discharge Medication list on patient's Discharge Instruction sheet Clinical Quality Measures AMI/AHF: ASA po Prior to arrival: Yes KELL BROWN MD FACP FAC CCDS Dec 17, 2022 14:47
--- NOTE | 2022-12-17 15:21 | Progress Note ---
Subjective Subjective/Events-last exam Patient feeling better from chest perspective, but bothered by congestion, sinus headache and pressure. That has been going on for 8 days, now with green thick mucous and head pain. Objective Exam Last Set of Vital Signs Vital Signs Date Time Temp Pulse Resp B/P (MAP) Pulse Ox O2 Delivery O2 Flow Rate FiO2 12/17/22 12:08 36.0 83 16 108/82 99 Room Air 0.00 Capillary Refill : Less Than 3 Seconds I&O Intake and Output 12/17/22 00:00 Intake Total 2800 ml Output Total 2250 ml Balance 550 ml Intake Oral 2800 ml Output Urine Total 2250 ml # Voids 12 # Bowel Movements 2 General: Alert, No Acute Distress HEENT: Other (mild pharyngeal erythema, face nontender to palpation) Lungs: Clear to Auscultation, Normal Air Movement Heart: Regular Rate, No Murmurs Neuro: Normal Speech Psych/Mental Status: Mood NL Results/Procedures Lab Laboratory Tests 12/16/22 15:48: Glucometer 146H 12/16/22 20:51: Glucometer 185H 12/17/22 04:57: Sodium Level 138, Potassium Level 4.0, Chloride Level 108H, Carbon Dioxide Level 20L, Anion Gap 10, Blood Urea Nitrogen 14, Creatinine 1.09, Estimat Glomerular Filtration Rate 74, BUN/Creatinine Ratio 13, Glucose Level 112H, Calcium Level 8.7, Corrected Calcium 8.9, Total Bilirubin 1.0, Aspartate Amino Transf (AST/SGOT) 53H, Alanine Aminotransferase (ALT/SGPT) 29, Alkaline Phosphatase 55, Total Protein 6.2L, Albumin 3.7 12/17/22 11:12: Glucometer 125H Microbiology 12/16/22 MRSA Screen - Final, Complete Assessment/Plan Assessment/Plan (1) Hyperglycemia Status: Acute Assessment & Plan: A1c 5.9, consistent with risk for diabetes but no diagnosis, sliding scale insulin as needed. Blood sugar 96-161, has not qualified for insulin. (2) Renal insufficiency Status: Resolved Assessment & Plan: Creatinine down to normal x 2 days before d/c. (3) Acute ST elevation myocardial infarction (STEMI) of inferior wall Status: Acute Assessment & Plan: s/p RCA stenting and thombectomy. Appreciate Cardiology recommendations. On metoprolol, ticagrelor and asprin and atorvastatin. (4) Sinusitis Status: Acute Assessment & Plan: Discharged with doxycycline prescription Qualifiers: Qualified Codes: J01.00 - Acute maxillary sinusitis, unspecified Clinical Quality Measures AMI/AHF: ASA po Prior to arrival: Yes PREMA VEGA MD Dec 17, 2022 15:20
[2022-12-18] MEDS ORDERED: LEVOTHYROXINE 125 MCG TABLET PO SCH (06:30)
== END 2022-12-17 12:13 | disposition home or self-care (01) | DRG 322 ==
LOC: EDUNIT# 23:59 → ER 12-15 00:02 → SDC 12-15 00:08 → ICU 12-15 02:03 → CSD 12-16 00:32
PROVIDERS: ADMIT Internal Medicine Cardiovascular Disease; ATTEND Internal Medicine Cardiovascular Disease
PROC: 027035Z Dilation of Coronary Artery, One Artery with Two Drug-eluting Intraluminal Devices, Percutaneous Approach (ICD-10-PCS; principal; 2022-12-15)
PROC: 02C03ZZ Extirpation of Matter from Coronary Artery, One Artery, Percutaneous Approach (ICD-10-PCS; 2022-12-15)
PROC: 4A023N7 Measurement of Cardiac Sampling and Pressure, Left Heart, Percutaneous Approach (ICD-10-PCS; 2022-12-15)
PROC: B2111ZZ Fluoroscopy of Multiple Coronary Arteries using Low Osmolar Contrast (ICD-10-PCS; 2022-12-15)
PROC: B2151ZZ Fluoroscopy of Left Heart using Low Osmolar Contrast (ICD-10-PCS; 2022-12-15)
DX: I21.19 ST elevation (STEMI) myocardial infarction involving other coronary artery of inferior wall (principal); E11.65 Type 2 diabetes mellitus with hyperglycemia; N28.9 Disorder of kidney and ureter, unspecified; E78.5 Hyperlipidemia, unspecified; Z87.891 Personal history of nicotine dependence; E03.9 Hypothyroidism, unspecified; J01.00 Acute maxillary sinusitis, unspecified; I10 Essential (primary) hypertension
CPT/HCPCS: 36415; 71045; 80053; 80061; 82947; 83036; 83690; 83735; 83874; 84443; 84484; 85025; 85610; 85730; 87081; 93005; 93041; 93306; 93458